=== PATIENT | female | born 1950 | race Caucasian/White ===

== ENCOUNTER 2021-02-02 12:43 | Emergency (ER) | payer MEDICARE, OTHER ==
--- NOTE | 2021-02-02 12:54 | ERPHSYRPT ---
- History of Present Illness Time Seen by Provider: 02/02/21 12:54 Source: patient Exam Limitations: no limitations Physician History: This is a 70-year-old white female who presents with a known history of Covid 19 infection. She was diagnosed by x-ray on 1124 with COVID-19 pneumonia. Patient's primary care physician is Dr. Soto. She sees greeting card editor Dr. Correa for her cardiac issues. Patient denies chest pain. Her main complaint today is multiple coughing episodes. She has no abdominal pain. She has no nausea vomiting or diarrhea. Patient has a pulse oximeter at home and it was reading 88 to 89% and she became concerned because of the persistent coughing and the low oxygen saturation level. However, upon arrival to the emergency department her oxygen saturations were running 92 to 94% on room air. Timing/Duration: day(s) (Several days), intermittent, worse Cough Quality/Degree: moderate, dry cough Possible Cause: no prior episodes Modifying Factors: Improves With: coughing Associated Symptoms: cough, No chest pain/soreness Allergies/Adverse Reactions: No Known Drug Allergies Allergy (Unverified 02/02/21 12:59) Home Medications: Clopidogrel Bisulfate 75 mg [PLAVIX 75 MG Tablet] 1 ea DAILY 02/02/21 [History] Lisinopril/Hydrochlorothiazide [Zestoretic 10-12.5 mg Tablet] 1 ea DAILY 02/02/21 [History] Metoprolol Succinate 50 mg [Toprol Xl 50 MG] 50 mg PO DAILY 02/02/21 [History] Ondansetron [Ondansetron Odt ] 1 ea TID 02/02/21 [History] Tolterodine Tartrate [Tolterodine Tartrate ER] 1 ea DAILY 02/02/21 [History] Travel Risk - International Travel Have you traveled outside of the country in past 3 weeks: No - Coronavirus Screening Are you exhibiting any of the following symptoms?: Yes Symptoms: Cough: New Onset Close contact with a COVID-19 positive Pt in past 14-21 Days: No - Review of Systems Constitutional: No Symptoms Eyes: No Symptoms Ears, Nose, & Throat: No Symptoms Respiratory: Cough Cardiac: No Symptoms Abdominal/Gastrointestinal: No Symptoms Genitourinary Symptoms: No Symptoms Musculoskeletal: No Symptoms Skin: No Symptoms Neurological: No Symptoms Psychological: No Symptoms Endocrine: No Symptoms Hematologic/Lymphatic: No Symptoms Immunological/Allergic: No Symptoms All Other Systems: Reviewed and Negative - Past Medical History Pertinent Past Medical History: Yes - Past Surgical History Past Surgical History: Yes - Nursing Vital Signs Nursing Vital Signs: Initial Vital Signs Temperature 99.0 F 02/02/21 12:51 Pulse Rate 88 02/02/21 12:51 Respiratory Rate 20 02/02/21 12:51 Blood Pressure 185/81 02/02/21 12:51 O2 Sat by Pulse Oximetry 92 L 02/02/21 12:51 Pain Scale Pain Intensity 0 - Physical Exam General Appearance: no apparent distress, alert, anxiety Eye Exam: PERRL/EOMI, eyes nml inspection Ears, Nose, Throat Exam: normal ENT inspection, moist mucous membranes Neck Exam: normal inspection, non-tender, supple, full range of motion Respiratory Exam: normal breath sounds, lungs clear, airway intact, No chest tenderness, No respiratory distress Cardiovascular Exam: regular rate/rhythm, normal heart sounds, normal peripheral pulses Gastrointestinal/Abdomen Exam: soft, normal bowel sounds, No tenderness Pelvic Exam: not done Rectal Exam: not done Back Exam: normal inspection, normal range of motion, No CVA tenderness, No vertebral tenderness Extremity Exam: normal inspection, normal range of motion, No pelvis stable Neurologic Exam: alert, oriented x 3, cooperative, 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 There is no comparison EKG available.) Ordered Tests: Active Orders 24 hr Category Date Time Status EKG-ER Only STAT Care 02/02/21 13:09 Active IV Insertion STAT Care 02/02/21 13:09 Active Pulse Oximetry (ED) STAT Care 02/02/21 13:09 Active CHEST 1 VIEW (PORTABLE) Stat Exams 02/02/21 13:10 Taken CHEST WITH CONTRAST [CT] Stat Exams 02/02/21 14:00 Ordered CBC W DIFF Stat Lab 02/02/21 13:07 Completed CMP Stat Lab 02/02/21 13:07 Completed D-DIMER QUANTITATIVE Stat Lab 02/02/21 13:07 Completed INFLUENZA A+B JAY Stat Lab 02/02/21 13:10 Completed Lactic Acid Stat Lab 02/02/21 13:09 Completed NT PRO BNP Stat Lab 02/02/21 13:07 Completed TROPONIN Q3H Lab 02/02/21 13:07 Completed TROPONIN Q3H Lab 02/02/21 16:15 Ordered TROPONIN Q3H Lab 02/02/21 19:15 Ordered TROPONIN Q3H Lab 02/02/21 22:15 Ordered TROPONIN Q3H Lab 02/03/21 01:15 Ordered Medication Summary Discontinued Medications Generic Name Dose Route Start Last Admin Trade Name Freq PRN Reason Stop Dose Admin Hydrocodone Bitart/Acetaminophen 10 ml 02/02/21 13:11 02/02/21 13:17 Hydrocodone/Acetaminophen 5 Ml Udcup PO 02/02/21 13:12 10 ml STAT STA Administration Hydrocodone Bitart/Acetaminophen Confirm 02/02/21 13:15 Hydrocodone/Acetaminophen 5 Ml Udcup Administered 02/02/21 13:16 Dose 10 ml .ROUTE .STK-MED ONE Methylprednisolone Sodium 0 mg 02/02/21 13:09 02/02/21 13:17 Succinate 125 mg/ Sterile IV 02/02/21 13:10 125 mg Water 2 ml STAT ONE Administration Sodium Chloride 500 mls @ 500 mls/hr 02/02/21 14:00 02/02/21 14:21 Sodium Chloride 0.9% 500 Ml IV 02/02/21 14:59 500 mls/hr .Q1H ONE Administration Sodium Chloride Confirm 02/02/21 14:20 Sodium Chloride 0.9% 500 Ml Administered 02/02/21 14:21 Dose 500 mls @ ud IV .STK-MED ONE Methylprednisolone Sodium Succinate Confirm 02/02/21 13:15 Methylprednis Sod Succ 125 Mg/2 Ml Vial Administered 02/02/21 13:16 Dose 125 mg .ROUTE .STK-MED ONE Sterile Water Confirm 02/02/21 13:15 Water For Injection,Sterile 10 Ml Vial Administered 02/02/21 13:16 Dose 10 ml IJ .STK-MED ONE Lab/Rad Data: Laboratory Result Diagrams 02/02/21 13:07 02/02/21 13:07 Laboratory Results 02/02/21 02/02/21 02/02/21 Range/Units 13:10 13:09 13:07 WBC (4.0-10.5) K/mm3 RBC (4.1-5.4) M/mm3 Hgb (12.0-16.0) gm/dl Hct (35-47) % MCV (78-100) fl MCH (26-32) pg MCHC (32-36) g/dl RDW (11.5-14.0) % Plt Count (150-450) K/mm3 MPV (7.5-11.0) fl Gran % (36.0-66.0) % Eos # (Auto) (0-0.5) Absolute Lymphs (auto) (1.0-4.6) Absolute Monos (auto) (0.0-1.3) Lymphocytes % (24.0-44.0) % Monocytes % (0.0-12.0) % Eosinophils % (0.00-5.0) % Basophils % (0.0-0.4) % Absolute Granulocytes (1.4-6.9) Basophils # (0-0.4) D-Dimer (215-500) ng/mL Sodium 127 L (137-145) mmol/L Potassium 3.2 L (3.5-5.1) mmol/L Chloride 88 L (98-107) mmol/L Carbon Dioxide 36 H (22-30) mmol/L Anion Gap 7.1 (5-15) MEQ/L BUN 6 L (7-17) mg/dL Creatinine 0.41 L (0.52-1.04) mg/dL Estimated GFR > 60.0 ML/MIN Glucose 110 H (74-106) mg/dL Lactic Acid 0.8 (0.4-2.0) Calcium 7.8 L (8.4-10.2) mg/dL Total Bilirubin 0.60 (0.2-1.3) mg/dL AST 129 H (14-36) U/L ALT 63 H (0-35) U/L Alkaline Phosphatase 62 (38-126) U/L Troponin I (0.000-0.034) ng/mL NT-Pro-B Natriuret Pep (0-900) pg/mL Serum Total Protein 5.3 L (6.3-8.2) g/dL Albumin 2.8 L (3.5-5.0) g/dL Influenza Type A Ag NEGATIVE (NEGATIVE) Influenza Type B Ag NEGATIVE (NEGATIVE) 02/02/21 02/02/21 02/02/21 Range/Units 13:07 13:07 13:07 WBC (4.0-10.5) K/mm3 RBC (4.1-5.4) M/mm3 Hgb (12.0-16.0) gm/dl Hct (35-47) % MCV (78-100) fl MCH (26-32) pg MCHC (32-36) g/dl RDW (11.5-14.0) % Plt Count (150-450) K/mm3 MPV (7.5-11.0) fl Gran % (36.0-66.0) % Eos # (Auto) (0-0.5) Absolute Lymphs (auto) (1.0-4.6) Absolute Monos (auto) (0.0-1.3) Lymphocytes % (24.0-44.0) % Monocytes % (0.0-12.0) % Eosinophils % (0.00-5.0) % Basophils % (0.0-0.4) % Absolute Granulocytes (1.4-6.9) Basophils # (0-0.4) D-Dimer 865 H* (215-500) ng/mL Sodium (137-145) mmol/L Potassium (3.5-5.1) mmol/L Chloride (98-107) mmol/L Carbon Dioxide (22-30) mmol/L Anion Gap (5-15) MEQ/L BUN (7-17) mg/dL Creatinine (0.52-1.04) mg/dL Estimated GFR ML/MIN Glucose (74-106) mg/dL Lactic Acid (0.4-2.0) Calcium (8.4-10.2) mg/dL Total Bilirubin (0.2-1.3) mg/dL AST (14-36) U/L ALT (0-35) U/L Alkaline Phosphatase (38-126) U/L Troponin I 0.018 (0.000-0.034) ng/mL NT-Pro-B Natriuret Pep 372 (0-900) pg/mL Serum Total Protein (6.3-8.2) g/dL Albumin (3.5-5.0) g/dL Influenza Type A Ag (NEGATIVE) Influenza Type B Ag (NEGATIVE) 02/02/21 Range/Units 13:07 WBC 3.0 L (4.0-10.5) K/mm3 RBC 4.14 (4.1-5.4) M/mm3 Hgb 11.7 L (12.0-16.0) gm/dl Hct 35.4 (35-47) % MCV 85.5 (78-100) fl MCH 28.3 (26-32) pg MCHC 33.1 (32-36) g/dl RDW 12.9 (11.5-14.0) % Plt Count 132 L (150-450) K/mm3 MPV 11.5 H (7.5-11.0) fl Gran % 62.3 (36.0-66.0) % Eos # (Auto) 0.02 (0-0.5) Absolute Lymphs (auto) 0.71 L (1.0-4.6) Absolute Monos (auto) 0.38 (0.0-1.3) Lymphocytes % 23.9 L (24.0-44.0) % Monocytes % 12.8 H (0.0-12.0) % Eosinophils % 0.7 (0.00-5.0) % Basophils % 0.3 (0.0-0.4) % Absolute Granulocytes 1.85 (1.4-6.9) Basophils # 0.01 (0-0.4) D-Dimer (215-500) ng/mL Sodium (137-145) mmol/L Potassium (3.5-5.1) mmol/L Chloride (98-107) mmol/L Carbon Dioxide (22-30) mmol/L Anion Gap (5-15) MEQ/L BUN (7-17) mg/dL Creatinine (0.52-1.04) mg/dL Estimated GFR ML/MIN Glucose (74-106) mg/dL Lactic Acid (0.4-2.0) Calcium (8.4-10.2) mg/dL Total Bilirubin (0.2-1.3) mg/dL AST (14-36) U/L ALT (0-35) U/L Alkaline Phosphatase (38-126) U/L Troponin I (0.000-0.034) ng/mL NT-Pro-B Natriuret Pep (0-900) pg/mL Serum Total Protein (6.3-8.2) g/dL Albumin (3.5-5.0) g/dL Influenza Type A Ag (NEGATIVE) Influenza Type B Ag (NEGATIVE) - Progress Progress: improved, re-examined Air Movement: good Progress Note: 02/02/21 15:17 Chest x-ray shows picture consistent with COVID-19 pneumonia Blood Culture(s) Obtained: Yes Antibiotics given: No Counseled pt/family regarding: lab results, diagnosis, need for follow-up, rad results - Departure Departure Disposition: Home Clinical Impression: Cough, Pneumonia due to COVID-19 virus Condition: Stable Critical Care Time: No Referrals: YONIS ANN [Primary Care Provider] - Follow up/PCP as directed Additional Instructions: Take medication as prescribed. Follow-up with your primary care physician for persistent symptoms. Return the emergency department if symptoms worsen. Prescriptions: Hydrocodone/Acetaminophen [Hydrocodone-Acetamn 7.5-325/15] 10 ml PO Q8H PRN PRN #120 ml MDD 30 ml PRN Reason: Cough Prednisone 10 mg [Deltasone 10 mg] 10 mg PO TID #12 tablet Albuterol 8 gm Mdi Hfa [Ventolin Hfa MDI] 8 gm IH Q4H #1 gm Azithromycin 250 mg [Zithromax 250 MG TABLET] 250 mg PO ZPACK #6 tablet
[2021-02-02] MEDS ORDERED: solu-MEDROL 125 MG, Sterile H2O 10 ml 2 ML IV ONE ×2 (13:09)
[2021-02-02] MEDS ORDERED: HYDROCODONE-ACETAMIN 2.5-108/5 ML SOLUTION PO STA (13:11)
[2021-02-02] MEDS ORDERED: solu-MEDROL ONE (13:15)
[2021-02-02] MEDS ORDERED: HYDROCODONE-ACETAMIN 2.5-108/5 ML SOLUTION ONE (13:15)
[2021-02-02] MEDS ORDERED: Sterile H2O 10 ml IJ ONE (13:15)
[2021-02-02 13:31] LABS: Absolute Neutrophil Ct (ANC) 1.85 (1.4-6.9); BASOPHIL % 0.3 % (0.0-0.4); Basophil (Absolute #) 0.01 (0-0.4); Eosinophil % 0.7 % (0.00-5.0); Eosinophil (Absolute #) 0.02 (0-0.5); Hematocrit 35.4 % (35-47); Hemoglobin 11.7 gm/dl (12.0-16.0); Lymphocyte (Absolute #) 0.71 (1.0-4.6); Lymphocytes % 23.9 % (24.0-44.0); Mean Cell Volume 85.5 fl (78-100); Mean Corpuscular Hemoglobin 28.3 pg (26-32); Mean Corpuscular Hgb Concent. 33.1 g/dl (32-36); Mean Platelet Volume 11.5 fl (7.5-11.0); Monocyte (Absolute #) 0.38 (0.0-1.3); Monocytes % 12.8 % (0.0-12.0); Neutrophil % 62.3 % (36.0-66.0); Platelet Count 132 K/mm3 (150-450); Red Blood Count 4.14 M/mm3 (4.1-5.4); Red Cell Distribution Width 12.9 % (11.5-14.0)
[2021-02-02 13:42] LABS: ALBUMIN 2.8 g/dL (3.5-5.0); ALKALINE PHOSPHATASE 62 U/L (38-126); ANION GAP 7.1 MEQ/L (5-15); BLOOD UREA NITROGEN 6 mg/dL (7-17); CHLORIDE 88 mmol/L (98-107); Calcium 7.8 mg/dL (8.4-10.2); Carbon Dioxide 36 mmol/L (22-30); Creatinine 1 0.41 mg/dL (0.52-1.04); EST GLOMERULAR FILTRATION RATE > 60.0 ML/MIN; Glucose 110 mg/dL (74-106); Potassium 3.2 mmol/L (3.5-5.1); SGOT/AST 129 U/L (14-36); SGPT/ALT 63 U/L (0-35); SODIUM 127 mmol/L (137-145); Total Protein 5.3 g/dL (6.3-8.2)
[2021-02-02] MEDS ORDERED: Sodium Chloride 0.9% 500 ML 500 ML IV ONE ×2 (14:00→14:20)
[2021-02-02 14:12] LABS: INFLUENZA A NEGATIVE (NEGATIVE); INFLUENZA B NEGATIVE (NEGATIVE)
[2021-02-02 14:17] VITALS: PULSE 80
[2021-02-02 15:07] VITALS: BP 167/93; O2SAT 93
--- NOTE | 2021-02-02 18:18 | XRAY ---
Indication: Cough. Positive Covid 19. Comparison: None Portable chest demonstrates mild diffuse bilateral patchy airspace disease without consolidation/large effusion. Heart not enlarged with coronary stent graft. Bony thorax intact.
== END 2021-02-02 15:35 | disposition home or self-care (01) ==
LOC: ED 12:43
DX: U07.1 COVID-19 (principal); J12.82 Pneumonia due to coronavirus disease 2019; R05.9 Cough, unspecified; Z79.01 Long term (current) use of anticoagulants; Z79.891 Long term (current) use of opiate analgesic
CPT/HCPCS: 36000; 36415; 71045; 80053; 83605; 83880; 84484; 85025; 85379; 87400; 93005; 94760; 96374; 99284; J2930; A9270-GY

== ENCOUNTER 2021-02-05 16:53 | Observation (INO) | payer MEDICARE, OTHER ==
--- NOTE | 2021-02-05 17:00 | ERPHSYRPT ---
- History of Present Illness Time Seen by Provider: 02/05/21 17:00 Source: patient Exam Limitations: no limitations Physician History: This is a 70-year-old white female who has a history of hypertension and is a patient of Dr. Ann who has been diagnosed with COVID-19 infection. She states that she has been having diarrhea for several days and is unable to tolerate oral intake. She is dry heaving. She has cramping pain with the diarrhea. She has no chest pain. She is not particularly short of breath. She feels weak. Cough Quality/Degree: no cough Possible Cause: no prior episodes Associated Symptoms: denies symptoms Allergies/Adverse Reactions: No Known Drug Allergies Allergy (Verified 02/05/21 17:01) Home Medications: Clopidogrel Bisulfate 75 mg [PLAVIX 75 MG Tablet] 1 ea DAILY 02/02/21 [History] Lisinopril/Hydrochlorothiazide [Zestoretic 10-12.5 mg Tablet] 1 ea DAILY 02/02/21 [History] Metoprolol Succinate 50 mg [Toprol Xl 50 MG] 50 mg PO DAILY 02/02/21 [History] Ondansetron [Ondansetron Odt ] 1 ea TID 02/02/21 [History] Tolterodine Tartrate [Tolterodine Tartrate ER] 1 ea DAILY 02/02/21 [History] Hx Influenza Vaccination/Date Given: No Hx Pneumococcal Vaccination/Date Given: No Travel Risk - International Travel Have you traveled outside of the country in past 3 weeks: No - Coronavirus Screening Are you exhibiting any of the following symptoms?: Yes Symptoms: Vomiting/Diarrhea Close contact with a COVID-19 positive Pt in past 14-21 Days: Yes - Vaccine Status Have you recieved a Covid-19 vaccination: No - Review of Systems Constitutional: No Symptoms Eyes: No Symptoms Ears, Nose, & Throat: No Symptoms Respiratory: No Symptoms Cardiac: No Symptoms Abdominal/Gastrointestinal: Vomiting, Diarrhea, Appetite Changes, No Nausea Genitourinary Symptoms: No Symptoms Musculoskeletal: No Symptoms Skin: No Symptoms Neurological: No Symptoms Psychological: No Symptoms Endocrine: No Symptoms Hematologic/Lymphatic: No Symptoms Immunological/Allergic: No Symptoms All Other Systems: Reviewed and Negative - Past Medical History Pertinent Past Medical History: Yes Cardiac History: Coronary Artery Disease, Hypertension - Past Surgical History Past Surgical History: Yes - Social History Smoking Status: Never smoker Exposure to second hand smoke: No Drug Use: none Patient Lives Alone: No - Nursing Vital Signs Nursing Vital Signs: Initial Vital Signs Temperature 97.6 F 02/05/21 17:02 Pulse Rate 77 02/05/21 17:02 Respiratory Rate 18 02/05/21 17:02 Blood Pressure 205/116 02/05/21 17:02 O2 Sat by Pulse Oximetry 96 02/05/21 17:02 Pain Scale Pain Intensity 0 - Physical Exam General Appearance: no apparent distress, alert, anxiety Eye Exam: PERRL/EOMI, eyes nml inspection Ears, Nose, Throat Exam: normal ENT inspection, moist mucous membranes Neck Exam: normal inspection, non-tender, supple, full range of motion Respiratory Exam: normal breath sounds, lungs clear, airway intact, No chest tenderness, No respiratory distress Cardiovascular Exam: regular rate/rhythm, normal heart sounds, normal peripheral pulses Gastrointestinal/Abdomen Exam: soft, normal bowel sounds, No tenderness Pelvic Exam: not done Rectal Exam: not done Back Exam: normal inspection, normal range of motion, No CVA tenderness, No vertebral tenderness Extremity Exam: normal inspection, normal range of motion, pelvis stable Neurologic Exam: alert, oriented x 3, cooperative, 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, normal mood/affect, nml cerebellar function, nml station & gait, sensation nml Skin Exam: normal color, warm, dry Lymphatic Exam: No adenopathy SpO2 Interpretation: normal O2 Delivery: Room Air - Course Nursing assessment & vital signs reviewed: Yes Ordered Tests: Active Orders 24 hr Category Date Time Status IV Insertion STAT Care 02/05/21 17:36 Active AMYLASE Stat Lab 02/05/21 17:54 Completed BLOOD CULTURE Stat Lab 02/05/21 17:54 Received CBC W DIFF Stat Lab 02/05/21 17:54 Completed CMP Stat Lab 02/05/21 17:54 Completed INFLUENZA A+B JAY Stat Lab 02/05/21 17:54 Completed LIPASE Stat Lab 02/05/21 17:54 Completed Lactic Acid Stat Lab 02/05/21 17:36 Completed Manual Differential NC Stat Lab 02/05/21 17:54 Completed UA W/RFX UR CULTURE Stat Lab 02/05/21 17:39 Completed RT Miscellaneous Order ROUTINE RT 02/05/21 18:42 Completed Transfer Order Routine Transfer 02/05/21 Ordered Medication Summary Generic Name Dose Route Start Last Admin Trade Name Juan José PRN Reason Stop Dose Admin Sodium Chloride 1,000 mls @ 999 mls/hr 02/05/21 18:53 02/05/21 19:20 Sodium Chloride 0.9% 1000 Ml IV 02/05/21 19:53 999 mls/hr .Q1H1M STA Administration Discontinued Medications Generic Name Dose Route Start Last Admin Trade Name Juan José PRN Reason Stop Dose Admin Sodium Chloride 1,000 mls @ 999 mls/hr 02/05/21 17:36 02/05/21 18:44 Sodium Chloride 0.9% 1000 Ml IV 02/05/21 18:36 Infused .Q1H1M STA Infusion Sodium Chloride Confirm 02/05/21 17:40 Sodium Chloride 0.9% 1000 Ml Administered 02/05/21 17:41 Dose 1,000 mls @ ud .ROUTE .STK-MED ONE Sodium Chloride Confirm 02/05/21 19:19 Sodium Chloride 0.9% 1000 Ml Administered 02/05/21 19:20 Dose 1,000 mls @ ud .ROUTE .STK-MED ONE Potassium Chloride 10 meq 02/05/21 19:30 Potassium Chloride 10 Meq Tablet PO 02/05/21 19:31 STAT ONE Lab/Rad Data: Laboratory Result Diagrams 02/05/21 17:54 02/05/21 17:54 Laboratory Results 02/05/21 02/05/21 02/05/21 Range/Units 17:54 17:54 17:54 WBC 7.6 (4.0-10.5) K/mm3 RBC 4.89 (4.1-5.4) M/mm3 Hgb 13.6 (12.0-16.0) gm/dl Hct 41.0 (35-47) % MCV 83.8 (78-100) fl MCH 27.8 (26-32) pg MCHC 33.2 (32-36) g/dl RDW 12.4 (11.5-14.0) % Plt Count 270 (150-450) K/mm3 MPV 10.3 (7.5-11.0) fl Segmented Neutrophils 76 H (36.0-66.0) % Lymphocytes (Manual) 14 L (24-44) % Monocytes (Manual) 9 (0.0-12.0) % Eosinophils (Manual) 1 (0.00-3.0) % Platelet Estimate NORMAL (NORMAL) RBC Morphology NORMAL Sodium 130 L (137-145) mmol/L Potassium 3.2 L (3.5-5.1) mmol/L Chloride 94 L (98-107) mmol/L Carbon Dioxide 29 (22-30) mmol/L Anion Gap 9.6 (5-15) MEQ/L BUN 10 (7-17) mg/dL Creatinine 0.46 L (0.52-1.04) mg/dL Estimated GFR > 60.0 ML/MIN Glucose 107 H (74-106) mg/dL Lactic Acid (0.4-2.0) Calcium 8.3 L (8.4-10.2) mg/dL Total Bilirubin 0.80 (0.2-1.3) mg/dL AST 120 H (14-36) U/L ALT 161 H (0-35) U/L Alkaline Phosphatase 75 (38-126) U/L Serum Total Protein 5.8 L (6.3-8.2) g/dL Albumin 3.1 L (3.5-5.0) g/dL Amylase 66 (30-110) U/L Lipase 174 (23-300) U/L Urine Color (YELLOW) Urine Appearance (CLEAR) Urine pH (5-6) Ur Specific [place] (1.005-1.025) Urine Protein (Negative) Urine Ketones (NEGATIVE) Urine Blood (0-5) Jt/ul Urine Nitrite (NEGATIVE) Urine Bilirubin (NEGATIVE) Urine Urobilinogen (0-1) mg/dL Ur Leukocyte Esterase (NEGATIVE) Urine WBC (Auto) (0-5) /HPF Urine RBC (Auto) (0-2) /HPF U Epithel Cells (Auto) (FEW) /HPF Urine Bacteria (Auto) (NEGATIVE) /HPF Urine Mucus (Auto) (NEGATIVE) /HPF Urine Culture Reflexed (NO) Urine Glucose (NEGATIVE) mg/dL Influenza Type A Ag NEGATIVE (NEGATIVE) Influenza Type B Ag NEGATIVE (NEGATIVE) 02/05/21 02/05/21 Range/Units 17:39 17:36 WBC (4.0-10.5) K/mm3 RBC (4.1-5.4) M/mm3 Hgb (12.0-16.0) gm/dl Hct (35-47) % MCV (78-100) fl MCH (26-32) pg MCHC (32-36) g/dl RDW (11.5-14.0) % Plt Count (150-450) K/mm3 MPV (7.5-11.0) fl Segmented Neutrophils (36.0-66.0) % Lymphocytes (Manual) (24-44) % Monocytes (Manual) (0.0-12.0) % Eosinophils (Manual) (0.00-3.0) % Platelet Estimate (NORMAL) RBC Morphology Sodium (137-145) mmol/L Potassium (3.5-5.1) mmol/L Chloride (98-107) mmol/L Carbon Dioxide (22-30) mmol/L Anion Gap (5-15) MEQ/L BUN (7-17) mg/dL Creatinine (0.52-1.04) mg/dL Estimated GFR ML/MIN Glucose (74-106) mg/dL Lactic Acid 1.5 (0.4-2.0) Calcium (8.4-10.2) mg/dL Total Bilirubin (0.2-1.3) mg/dL AST (14-36) U/L ALT (0-35) U/L Alkaline Phosphatase (38-126) U/L Serum Total Protein (6.3-8.2) g/dL Albumin (3.5-5.0) g/dL Amylase (30-110) U/L Lipase (23-300) U/L Urine Color YELLOW (YELLOW) Urine Appearance CLEAR (CLEAR) Urine pH 9.0 (5-6) Ur Specific [place] 1.011 (1.005-1.025) Urine Protein 30 (Negative) Urine Ketones NEGATIVE (NEGATIVE) Urine Blood NEGATIVE (0-5) Jt/ul Urine Nitrite NEGATIVE (NEGATIVE) Urine Bilirubin NEGATIVE (NEGATIVE) Urine Urobilinogen NEGATIVE (0-1) mg/dL Ur Leukocyte Esterase NEGATIVE (NEGATIVE) Urine WBC (Auto) 0-2 (0-5) /HPF Urine RBC (Auto) NONE (0-2) /HPF U Epithel Cells (Auto) NONE (FEW) /HPF Urine Bacteria (Auto) NONE SEEN (NEGATIVE) /HPF Urine Mucus (Auto) SLIGHT (NEGATIVE) /HPF Urine Culture Reflexed NO (NO) Urine Glucose NEGATIVE (NEGATIVE) mg/dL Influenza Type A Ag (NEGATIVE) Influenza Type B Ag (NEGATIVE) - Progress Progress: improved Air Movement: good Blood Culture(s) Obtained: No Antibiotics given: No Discussed with Dr.: Other (Dr. Saira Ann) Will see patient in: hospital (full admit) Counseled pt/family regarding: lab results, diagnosis - Departure Departure Disposition: In-patient Admission Clinical Impression: COVID-19 virus infection, Vomiting and diarrhea, Hypokalemia, Weakness Condition: Fair Critical Care Time: No Referrals: YONIS ANN [Primary Care Provider] - Follow up/PCP as directed
[2021-02-05] MEDS ORDERED: Sodium Chloride 0.9% 1000 ML 1,000 ML IV STA ×2 (17:36→18:53)
[2021-02-05] MEDS ORDERED: Sodium Chloride 0.9% 1000 ML 1,000 ML ONE ×2 (17:40→19:19)
[2021-02-05 17:53] LABS: Appearance CLEAR (CLEAR); Bilirubin NEGATIVE (NEGATIVE); Blood NEGATIVE Ery/ul (0-5); Glucose NEGATIVE (NEGATIVE); Ketones NEGATIVE (NEGATIVE); Leukocyte Esterase NEGATIVE (NEGATIVE); Mucus SLIGHT /HPF (NEGATIVE); Nitrite NEGATIVE (NEGATIVE); Protein,Urine Dip 30 (Negative); Specific Gravity 1.011 (1.005-1.025); Urobilinogen NEGATIVE mg/dL (0-1); WBC 0-2 /HPF (0-5)
[2021-02-05 17:58] LABS: Bacteria NONE SEEN /HPF (NEGATIVE)
[2021-02-05 18:05] LABS: Hemoglobin 13.6 gm/dl (12.0-16.0); Mean Cell Volume 83.8 fl (78-100); Mean Corpuscular Hemoglobin 27.8 pg (26-32); Mean Corpuscular Hgb Concent. 33.2 g/dl (32-36); Mean Platelet Volume 10.3 fl (7.5-11.0); Platelet Count 270 K/mm3 (150-450); Red Blood Count 4.89 M/mm3 (4.1-5.4); Red Cell Distribution Width 12.4 % (11.5-14.0); White Blood Count 7.6 K/mm3 (4.0-10.5)
[2021-02-05 18:16] LABS: ALBUMIN 3.1 g/dL (3.5-5.0); ALKALINE PHOSPHATASE 75 U/L (38-126); AMYLASE 66 U/L (30-110); ANION GAP 9.6 MEQ/L (5-15); BLOOD UREA NITROGEN 10 mg/dL (7-17); CHLORIDE 94 mmol/L (98-107); Calcium 8.3 mg/dL (8.4-10.2); Carbon Dioxide 29 mmol/L (22-30); Creatinine 1 0.46 mg/dL (0.52-1.04); EST GLOMERULAR FILTRATION RATE > 60.0 ML/MIN; Glucose 107 mg/dL (74-106); LIPASE 174 U/L (23-300); Potassium 3.2 mmol/L (3.5-5.1); SGOT/AST 120 U/L (14-36); SGPT/ALT 161 U/L (0-35); SODIUM 130 mmol/L (137-145); Total Protein 5.8 g/dL (6.3-8.2)
[2021-02-05 18:33] LABS: Eosinophil 1 % (0.00-3.0); Lymphocytes 14 % (24-44); Monocyte 9 % (0.0-12.0); Neutrophils 76 % (36.0-66.0); Platelet Estimate NORMAL (NORMAL); Total Cells Counted 100
[2021-02-05 18:55] LABS: INFLUENZA A NEGATIVE (NEGATIVE); INFLUENZA B NEGATIVE (NEGATIVE)
[2021-02-05] MEDS ORDERED: Klor Con 10 MEQ PO ONE ×2 (19:30→19:52)
[2021-02-05] MEDS ORDERED: REMDESIVIR 200 MG in Sodium Chloride 0.9% 250 ML 250 ML IV ONE (21:02)
[2021-02-05] MEDS ORDERED: TYLENOL EXTRA STRENGTH 500 MG PO PRN (21:02)
[2021-02-05] MEDS ORDERED: Zofran 4 MG/2 ML VIAL IV PRN (21:02)
[2021-02-05] MEDS ORDERED: REMDESIVIR IV ONE (21:22)
[2021-02-05] MEDS ORDERED: Sodium Chloride 0.9% 250 ML 250 ML IV ONE (21:22)
[2021-02-05] MEDS ORDERED: APRESOLINE 20 MG/ML INJ IV PRN (22:48)
[2021-02-05] MEDS ORDERED: HYDROCODONE-CHLORPHEN ER SUSP PO PRN (22:49)
[2021-02-05] MEDS ORDERED: Lomotil PO PRN (22:50)
[2021-02-05] MEDS: Sodium Chloride 0.9% 1000 ML 1,000 ML IV SCH (23:07)
[2021-02-05] MEDS: PLAVIX 75 MG Tablet PO SCH (23:08)
[2021-02-05] MEDS: Zestril 10 MG PO SCH (23:08)
[2021-02-05] MEDS: Ativan 2 MG/1 ML VIAL IV PRN (23:09)
[2021-02-06] MEDS: Ativan 2 MG/1 ML VIAL IV PRN ×2 (03:20→23:12)
[2021-02-06] MEDS ORDERED: PATIENT OWN MEDICATION IH PRN (06:06)
[2021-02-06 06:08] LABS: Hematocrit 39.5 % (35-47); Mean Cell Volume 84.6 fl (78-100); Mean Corpuscular Hemoglobin 27.8 pg (26-32); Mean Corpuscular Hgb Concent. 32.9 g/dl (32-36); Mean Platelet Volume 9.9 fl (7.5-11.0); Platelet Count 276 K/mm3 (150-450); Red Blood Count 4.67 M/mm3 (4.1-5.4); Red Cell Distribution Width 12.6 % (11.5-14.0); White Blood Count 9.1 K/mm3 (4.0-10.5)
[2021-02-06 06:33] LABS: ALBUMIN 2.8 g/dL (3.5-5.0); ALKALINE PHOSPHATASE 63 U/L (38-126); ANION GAP 10.7 MEQ/L (5-15); BLOOD UREA NITROGEN 8 mg/dL (7-17); CHLORIDE 100 mmol/L (98-107); Calcium 7.9 mg/dL (8.4-10.2); Carbon Dioxide 25 mmol/L (22-30); Creatinine 1 0.43 mg/dL (0.52-1.04); EST GLOMERULAR FILTRATION RATE > 60.0 ML/MIN; Glucose 88 mg/dL (74-106); Potassium 3.4 mmol/L (3.5-5.1); SGOT/AST 112 U/L (14-36); SGPT/ALT 172 U/L (0-35); SODIUM 132 mmol/L (137-145); Total Protein 5.4 g/dL (6.3-8.2)
[2021-02-06] MEDS: DECADRON 10MG INJ. IV SCH (09:36)
[2021-02-06] MEDS: ENOXAPARIN SODIUM SQ SCH (09:38)
[2021-02-06] MEDS ORDERED: ACETAMINOPHEN PO PRN (10:54)
[2021-02-06] MEDS ORDERED: [UNRECOGNIZED DRUG - OTHER] PO PRN (10:54)
[2021-02-06] MEDS ORDERED: HYDROCODONE PO PRN (10:54)
[2021-02-06] MEDS ORDERED: SOLU PO PRN (10:54)
[2021-02-06] MEDS: hydroDIURIL 25 MG PO SCH (11:11)
[2021-02-06] MEDS: Toprol Xl 50 MG PO SCH (11:11)
[2021-02-06] MEDS: Zestril 10 MG PO SCH ×2 (11:12→21:00)
[2021-02-06] MEDS: ZOFRAN ODT 4 MG PO SCH ×4 (11:24→21:10)
--- NOTE | 2021-02-06 14:21 | HP ---
CHIEF COMPLAINT: Intractable diarrhea, nausea, unable to drink and frequent cough, shortness of breath. HISTORY OF PRESENT ILLNESS: The patient is a 70-year-old white female who has been sick with these complaints about four days. She was seen at [facility] and was given antibodies for the COVID diagnosis made at the time. However, her condition has not improved any. She was also placed on Zithromax, I believe, and prednisone. She normally has no pulmonary problems. She does not smoke. She does not have any coronary artery disease. Nonproductive cough. TRAVEL RISK: No international travel. No travel out of [place] recently. CORONAVIRUS SCREENING: She has family members who have COVID. VACCINES: No influenza, no pneumonia and apparently no COVID vaccine either. HOME MEDICATIONS: Plavix 75 mg 1 q.d., lisinopril/hydrochlorothiazide 10 - 12.5 mg q.d., Toprol XL 50 q.d., ondansetron ODT 1 t.i.d., tolterodine 1 q.d. ALLERGIES: NKDA. PAST MEDICAL HISTORY: Myocardial infarction, hypertension. PAST SURGICAL HISTORY: Heart catheterization. REVIEW OF SYSTEMS: CONSTITUTIONAL: No fever. No chills. Cough. Dry mouth. No taste. HEENT: Slightly hard of hearing. CHEST: Frequent dry cough. CVS: Myocardial infarction in the past. Hypertension for many years. Heart cath several years ago. NEUROLOGIC: No symptoms. No tingling or burning in her feet. PSYCHIATRIC: No chronic problems. ENDOCRINE: No diabetes. Hypertension. PHYSICAL EXAMINATION: The patient is a young appearing 70-year-old white female who had some coughing and nausea. VITAL SIGNS: Vital signs in the emergency room temperature 97F, pulse 77, respirations 18, blood pressure 205/116. O2 saturation 96%. HEENT: Dry mucosal membranes. NECK: No bruits. No lymphadenopathy. CHEST: Some rales bilateral. CVS: Heart sounds are distant and regular. ABDOMEN: Some tenderness over the upper abdomen. Normal bowel sounds. Tender to touch. EXTREMITIES: No cyanosis. No edema. Fair pulses in the feet. LAB DATA AND TESTS: The patient's white count is 10,000. Influenza A test was negative. Hemoglobin 13. Normal differential except 76 segs slightly high, 14 lymphs slightly low, a little bit unusual for COVID. Glucose 107, creatinine 0.46, sodium 130, potassium 3.2, total protein down to 8.3. SGPT elevated 120. Albumin low at 3.1. Alkaline phosphatase slightly elevated at 163. Amylase and lipase normal. IMPRESSION: The patient has:1) COVID. Although her oxygen is not low she definitely has COVID pneumonia with the constant cough. Chest x-ray is not back. 2) Dehydration. 3) Hypokalemia. 4) Hyponatremia. 5) Loss of taste. 6) Loss of appetite. 7) Weight loss all from the COVID gastroenteritis. PLAN: The patient will be given some IV fluids initially to reload her system and to get some potassium into her. She will be treated with some Tussionex which she said helped at home, home medications, Remdesivir, anticoagulated with half dose of Lovenox. I will check her electrolytes in the morning. PROGNOSIS: [place] to be good.
[2021-02-06] MEDS ORDERED: REMDESIVIR 100 MG in Sodium Chloride 0.9% 100 ML BAG 100 ML IV SCH (18:00)
[2021-02-06] MEDS: PLAVIX 75 MG Tablet PO SCH (21:00)
[2021-02-06] MEDS: Sodium Chloride 0.9% 1000 ML 1,000 ML IV SCH (21:15)
[2021-02-06] MEDS ORDERED: PLAVIX 75 MG Tablet PO SCH (22:00)
[2021-02-06] MEDS ORDERED: Zestril 10 MG PO SCH (22:00)
[2021-02-07 06:06] LABS: Hematocrit 35.5 % (35-47); Hemoglobin 11.7 gm/dl (12.0-16.0); Mean Cell Volume 84.7 fl (78-100); Mean Corpuscular Hemoglobin 27.9 pg (26-32); Platelet Count 289 K/mm3 (150-450); Red Blood Count 4.19 M/mm3 (4.1-5.4); Red Cell Distribution Width 12.5 % (11.5-14.0); White Blood Count 7.3 K/mm3 (4.0-10.5)
[2021-02-07 06:20] LABS: ALBUMIN 2.3 g/dL (3.5-5.0); ALKALINE PHOSPHATASE 56 U/L (38-126); ANION GAP 7.8 MEQ/L (5-15); BLOOD UREA NITROGEN 10 mg/dL (7-17); CHLORIDE 101 mmol/L (98-107); Calcium 7.7 mg/dL (8.4-10.2); Carbon Dioxide 24 mmol/L (22-30); Creatinine 1 0.49 mg/dL (0.52-1.04); EST GLOMERULAR FILTRATION RATE > 60.0 ML/MIN; Glucose 85 mg/dL (74-106); Potassium 3.2 mmol/L (3.5-5.1); SGOT/AST 87 U/L (14-36); SGPT/ALT 171 U/L (0-35); SODIUM 130 mmol/L (137-145); Total Protein 4.7 g/dL (6.3-8.2)
[2021-02-07 07:43] VITALS: BP 143/89; O2SAT 91
[2021-02-07] MEDS: hydroDIURIL 25 MG PO SCH (08:45)
[2021-02-07] MEDS: Toprol Xl 50 MG PO SCH (08:45)
[2021-02-07] MEDS: DECADRON 10MG INJ. IV SCH (08:46)
[2021-02-07] MEDS: Zestril 10 MG PO SCH (08:46)
[2021-02-07] MEDS: ENOXAPARIN SODIUM SQ SCH (08:46)
[2021-02-07] MEDS: ZOFRAN ODT 4 MG PO SCH (08:47)
[2021-02-07 09:42] VITALS: PULSE 90
[2021-02-07] MEDS ORDERED: HYDROCHLOROTHIAZIDE PO SCH (10:00)
[2021-02-07] MEDS ORDERED: LISINOPRIL PO SCH (10:00)
[2021-02-07] MEDS ORDERED: [UNRECOGNIZED DRUG - OTHER] PO SCH (10:00)
== END 2021-02-07 10:15 | disposition home or self-care (01) ==
LOC: ED 16:53 → MED SURG 21:01
PROVIDERS: ADMIT Family Medicine; ATTEND Family Medicine
DX: U07.1 COVID-19 (principal); J12.82 Pneumonia due to coronavirus disease 2019; E87.6 Hypokalemia; R19.7 Diarrhea, unspecified; R11.2 Nausea with vomiting, unspecified; R53.1 Weakness; E86.0 Dehydration; E87.1 Hypo-osmolality and hyponatremia; I10 Essential (primary) hypertension; I25.2 Old myocardial infarction; Z79.899 Other long term (current) drug therapy; Z79.01 Long term (current) use of anticoagulants
CPT/HCPCS: 36000; 36415; 80053; 81001; 82150; 83605; 83690; 85025; 85027; 85379; 87040; 87400; 93268; 94762; 96360; 96365; 96413; 99285; G0378; J0360; J1100; J1650; J2060; Q0162; A9270-GY